=== PATIENT | female | born 1955 | race Caucasian/White ===

== ENCOUNTER 2016-12-27 14:22 | Outpatient (CLI) | payer OTHER ==
--- NOTE | 2016-12-27 17:06 | DIAGNOSTIC IMAGING REPORT ---
PROCEDURE: MR UPPER EXTREMITY W/O CONT-RT INDICATION: RIGHT PROXIMAL HUMERUS FRACTURE TECHNIQUE: PD and FAT-SAT PD, axial, and coronal-oblique images. PD and STIR sagittal-oblique images. COMPARISON: None. FINDINGS: Nondisplaced fracture of the humeral head and neck. Mild AC joint and type 2 acromion resulting in impingement. Normal rotator cuff without tear. Small subdeltoid and subacromial effusion. Normal glenoid labrum. Normal bicipital tendon. There is generalized mild muscular atrophy. IMPRESSION: 1. Nondisplaced fracture of the humeral head and neck 2. Mild impingement 3. Mild subdeltoid and subacromial effusion 4. Results called to Dr. Nieves (voicemail).
== END 2016-12-27 23:00 ==
LOC: MRI SRH 14:22
DX: S42.254A Nondisplaced fracture of greater tuberosity of right humerus, initial encounter for closed fracture (principal); M75.41 Impingement syndrome of right shoulder; M25.411 Effusion, right shoulder